=== PATIENT | female | born 1980 | race Two or more races ===

== ENCOUNTER 2020-07-18 21:24 | Emergency (ER) | payer MEDICAID, OTHER ==
[~2020-07-18] VITALS: Ht 157.5 cm; Wt 88.0 kg
[2020-07-18 21:29] VITALS: BP 177/108
== END 2020-07-18 23:55 | disposition left against medical advice (07) ==
LOC: ER 21:31
DX: I10 Essential (primary) hypertension (principal); Z53.21 Procedure and treatment not carried out due to patient leaving prior to being seen by health care provider